=== PATIENT | female | born 1995 | race Caucasian/White ===

== ENCOUNTER 2017-08-06 14:07 | Emergency (ER) | payer MEDICAID ==
[2017-08-06 14:07] VITALS: BMI 30.5
[2017-08-06 15:06] VITALS: BP 110/64; PULSE 72; RESP 18; TEMP 98.2
[2017-08-06 15:12] VITALS: O2SAT 98
--- NOTE | 2017-08-06 15:12 | C.PDOC ---
History Of Present Illness 22 year old female presents to the emergency department with complaints of intermittent facial and bilateral hand swelling for the past "several days". Patient states that the symptoms are only present in the morning when she wakes up, and they resolve as the day goes on. Currently, the patient states she is asymptomatic and is in no pain. Patient does not have a primary care physician. The use of a ballpoint pen cartridge tester was necessary in order to communicate with this patient. Time Seen by Provider: 08/06/17 14:39 Chief Complaint (Nursing): Upper Extremity Problem/Injury History Per: Patient, Screw[employer] Automatic Onset/Duration Of Symptoms: Days, Waxing/Waning Current Symptoms Are (Timing): Gone Location: Face and bilateral hand. Past Medical History Reviewed: Historical Data, Nursing Documentation, Vital Signs Vital Signs: Last Vital Signs Temp 98.2 F 08/06/17 15:05 Pulse 72 08/06/17 15:05 Resp 18 08/06/17 15:05 BP 110/64 08/06/17 15:05 Pulse Ox 98 08/06/17 15:29 - Medical History PMH: No Chronic Diseases Surgical History: No Surg Hx - [facility] Procedures EPISIOTOMY (09/22/14) Family History: States: No Known Family Hx - Social History Hx Alcohol Use: No Hx Substance Use: No - Immunization History Hx Tetanus Toxoid Vaccination: Yes Hx Influenza Vaccination: No Hx Pneumococcal Vaccination: No Review Of Systems Except As Marked, All Systems Reviewed And Found Negative. Musculoskeletal: Positive for: Hand Pain (associated with swelling), Other ( facial swelling) Physical Exam - Physical Exam Appears: Well, Non-toxic, No Acute Distress Skin: Normal Color Head: Atraumatic, Normacephalic Neck: Normal, Supple Respiratory: Normal Breath Sounds Extremity: Normal ROM Neurological/Psych: Oriented x3, Normal Speech, Normal Cognition ED Course And Treatment O2 Sat by Pulse Oximetry: 98 (RA) Pulse Ox Interpretation: Normal Progress Note: Patient advised to seek clinic evaluation, due to the fact that there were no acute findings in her physical exam. Disposition Counseled Patient/Family Regarding: Diagnosis, Need For Followup - Disposition Referrals: YOUR,PMD [Other] [facility] [Outside] [facility] [Outside] Disposition: HOME/ ROUTINE Disposition Time: 15:28 Condition: GOOD Instructions: Swelling Forms: [employer] (Guatemalan) Print Language: TELUGU - Clinical Impression Clinical Impression: Swelling - Scribe Statement The provider has reviewed the documentation as recorded by the Scribe (Naun Singh) Provider Attestation: All medical record entries made by the Scribe were at my direction and personally dictated by me. I have reviewed the chart and agree that the record accurately reflects my personal performance of the history, physical exam, medical decision making, and the department course for this patient. I have also personally directed, reviewed, and agree with the discharge instructions and disposition.
== END 2017-08-06 15:38 | disposition home or self-care (01) ==
LOC: C.ER 14:07
DX: M79.89 Other specified soft tissue disorders (principal)

== ENCOUNTER 2018-04-28 08:45 | Emergency (ER) | payer MEDICAID ==
[2018-04-28 08:46] VITALS: BMI 23.2
[2018-04-28 09:33] LABS: BASO % 0.6 % (0.0-2.0); EOS # 0.2 K/uL (0.0-0.7); EOS % 3.1 % (0.0-4.0); HEMOGLOBIN 12.9 g/dL (11.0-16.0); LYMPH # 1.2 K/uL (1.0-4.3); LYMPH % 21.3 % (20.0-40.0); MEAN CELL VOLUME 92.2 fL (81.0-99.0); MEAN CORPUSCULAR HGB CONC 33.6 g/dL (33.0-37.0); MEAN PLATELET VOLUME 10.7 fL (7.2-11.7); MONO # 0.5 K/uL (0.0-0.8); MONO % 9.1 % (0.0-10.0); NEUT # 3.8 K/uL (1.8-7.0); NEUT % 65.9 % (50.0-75.0); RBC 4.16 Mil/uL (3.80-5.20); WHITE BLOOD COUNT 5.8 K/uL (4.8-10.8)
--- NOTE | 2018-04-28 09:36 | C.PDOC ---
History Of Present Illness 22 y/o F p/w vaginal bleeding in . LMP 03/24. Positive home test. This morning with painless vaginal bleeding, small squeezing feeling suprapubically. Denies fever, dyspnea, dysuria. Time Seen by Provider: 04/28/18 09:10 Chief Complaint (Nursing): Female Genitourinary Past Medical History Vital Signs: Last Vital Signs Temp 98.2 F 04/28/18 09:01 Pulse 64 04/28/18 09:01 Resp 18 04/28/18 09:01 BP 106/69 04/28/18 09:01 Pulse Ox 99 04/28/18 09:01 - Medical History PMH: Anemia - [facility] Procedures EPISIOTOMY (09/22/14) Family History: States: No Known Family Hx - Social History Hx Alcohol Use: Yes Hx Substance Use: No - Immunization History Hx Tetanus Toxoid Vaccination: Yes Hx Influenza Vaccination: No Hx Pneumococcal Vaccination: No Review Of Systems Except As Marked, All Systems Reviewed And Found Negative. Constitutional: Negative for: Fever Respiratory: Negative for: Shortness of Breath Physical Exam - Physical Exam Additional Physical Exam Comments: Constitutional: No acute distress. Head: Normocephalic. Atraumatic. Eyes: PERRL. ENT: Moist mucous membranes. Neck: Supple. Cardiovascular: Regular rate. Radial pulse 2+ bilaterally. Chest: No tenderness. Respiratory: Clear to auscultation bilaterally. GI: Soft. Nontender. Nondistended. Back: No CVA tenderness. Musculoskeletal: No tenderness or swelling of extremities. Skin: No rash. Neurologic: Alert, no focal deficit. ED Course And Treatment - Laboratory Results Result Diagrams: 04/28/18 09:29 04/28/18 09:29 O2 Sat by Pulse Oximetry: 99 Disposition - Disposition Disposition: HOME/ ROUTINE Disposition Time: 11:34 Condition: STABLE Additional Instructions: FINDINGS: UTERUS: Measures 8.8 x 3.3 x 4.7 cm. Normal in size and appearance. No fibroid or other mass lesion seen. ENDOMETRIUM: Measures 10 mm in diameter. No intrauterine gestation identified. Cannot rule out ectopic gestation on the basis of this examination. CERVIX: 3.1 cm. No endocervical fluid. RIGHT OVARY: Measures 3.1 x 2.0 x 2.1 cm. No solid mass. Normal flow. LEFT OVARY: Measures 2.2 x 3.0 x 3.4 cm. No solid mass. Normal flow. FREE FLUID: No significant free fluid noted. OTHER FINDINGS: None. IMPRESSION: No intrauterine gestation identified. Cannot exclude ectopic gestation on the basis of this examination in the absence of an intrauterine . No other significant abnormality. Instructions: Menstruation Forms: [employer] (Gambian) - Clinical Impression Clinical Impression: Vaginal bleeding
[2018-04-28 09:50] LABS: SQUAMOUS EPITHIAL 3 /hpf (0-5); URINE BACTERIA RARE (<OCC); URINE BILIRUBIN NEGATIVE (NEGATIVE); URINE BLOOD 3+ (NEGATIVE); URINE CLARITY Clear (Clear); URINE COLOR Yellow (YELLOW); URINE GLUCOSE (UA) NORMAL (Normal); URINE LEUKOCYTE ESTERASE TRACE Leu/uL (Negative); URINE PROTEIN NEGATIVE (NEGATIVE); URINE UROBILINOGEN NORMAL mg/dL (0.2-1.0)
[2018-04-28 09:54] LABS: ALB/GLOB RATIO 1.5 (1.0-2.1); ALT/SGPT 46 U/L (9-52); AST/SGOT 29 U/L (14-36); BLOOD UREA NITROGEN 11 mg/dL (7-17); CALCIUM 8.3 mg/dl (8.6-10.4); GFR NON-AFRICAN AMERICAN > 60
--- NOTE | 2018-04-28 11:31 | US ---
Date of service: 04/28/2018 HISTORY: vaginal bleeding in , assess cervix COMPARISON: None available. TECHNIQUE: Transabdominal and transvaginal FINDINGS: UTERUS: Measures 8.8 x 3.3 x 4.7 cm. Normal in size and appearance. No fibroid or other mass lesion seen. ENDOMETRIUM: Measures 10 mm in diameter. No intrauterine gestation identified. Cannot rule out ectopic gestation on the basis of this examination. CERVIX: 3.1 cm. No endocervical fluid. RIGHT OVARY: Measures 3.1 x 2.0 x 2.1 cm. No solid mass. Normal flow. LEFT OVARY: Measures 2.2 x 3.0 x 3.4 cm. No solid mass. Normal flow. FREE FLUID: No significant free fluid noted. OTHER FINDINGS: None. IMPRESSION: No intrauterine gestation identified. Cannot exclude ectopic gestation on the basis of this examination in the absence of an intrauterine . No other significant abnormality.
[2018-04-28 11:43] VITALS: BP 111/73; PULSE 76; RESP 16; TEMP 99.3; O2SAT 100
== END 2018-04-28 11:42 | disposition home or self-care (01) ==
LOC: C.ER 08:45
DX: N93.9 Abnormal uterine and vaginal bleeding, unspecified (principal)